=== PATIENT | female | born 1955 | race Two or more races ===

== ENCOUNTER 2018-08-22 05:00 | Day surgery (SDC) | payer OTHER ==
[~2018-08-22 05:00] MED LIST: NAPROXEN SODIU550 MG PO; SYNTHROID100 MCG PO; ZOCOR20 MG PO
== END 2018-08-22 13:00 | disposition home or self-care (01) ==
LOC: CIR.AMB 05:00
DX: M65.841 Other synovitis and tenosynovitis, right hand (principal)